=== PATIENT | female | born 1970 | race Hispanic/Latino ===

== ENCOUNTER 2019-09-07 20:18 | Emergency (ER) | payer OTHER ==
--- NOTE | 2019-09-07 21:22 | Emergency Department Report ---
ED General Adult HPI - General Chief complaint: Dizziness Stated complaint: DIZZINESS/CLIFTON Time Seen by Provider: 09/07/19 21:21 Source: patient Mode of arrival: Ambulatory Limitations: No Limitations - History of Present Illness Initial comments: 49-year-old female presents emergency department after having a complaint of headache dizziness and a cough for the past 2 days. 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 Patient denies any nausea or vomiting. Patient states the cough is been productive. Patient denies any other recent travel. - Related Data Previous Rx's Medication Instructions Recorded Last Taken Type Acetaminophen [Tylenol] 325 mg PO Q8HR #20 capsule 09/08/19 Unknown Rx Allergies Allergy/AdvReac Type Severity Reaction Status Date / Time amoxicillin [From Augmentin] AdvReac Itching Verified 09/07/19 22:10 clavulanic acid AdvReac Itching Verified 09/07/19 22:10 [From Augmentin] ED Review of Systems ROS: Stated complaint: DIZZINESS/CLIFTON Other details as noted in HPI Constitutional: denies: chills, fever Eyes: denies: eye pain, eye discharge, vision change ENT: denies: ear pain, throat pain Respiratory: cough Cardiovascular: denies: chest pain, palpitations Endocrine: no symptoms reported Gastrointestinal: denies: abdominal pain, nausea, diarrhea Genitourinary: denies: urgency, dysuria, discharge Musculoskeletal: denies: back pain, joint swelling, arthralgia Skin: denies: rash, lesions Neurological: headache, other (dizziness) Psychiatric: denies: anxiety, depression Hematological/Lymphatic: denies: easy bleeding, easy bruising ED Past Medical Hx - Medications Home Medications: Home Medications Medication Instructions Recorded Confirmed Last Taken Type Acetaminophen [Tylenol] 325 mg PO Q8HR #20 capsule 09/08/19 Unknown Rx ED Physical Exam - General Limitations: No Limitations General appearance: alert, other (Mildly uncomfortable) - Head Head exam: Present: atraumatic, normocephalic - Eye Eye exam: Present: normal appearance - ENT ENT exam: Present: mucous membranes moist - Neck Neck exam: Present: normal inspection - Respiratory Respiratory exam: Present: normal lung sounds bilaterally. Absent: respiratory distress - Cardiovascular Cardiovascular Exam: Present: regular rate, normal rhythm. Absent: systolic murmur, diastolic murmur, rubs, gallop - GI/Abdominal GI/Abdominal exam: Present: soft, normal bowel sounds - Extremities Exam Extremities exam: Present: normal inspection - Back Exam Back exam: Present: normal inspection - Neurological Exam Neurological exam: Present: alert, oriented X3 - Psychiatric Psychiatric exam: Present: normal affect, normal mood - Skin Skin exam: Present: warm, dry, intact, normal color. Absent: rash ED Course Vital Signs 09/07/19 09/07/19 20:21 22:34 Temperature 98.6 F 98.7 F Pulse Rate 70 61 Respiratory 18 16 Rate Blood Pressure 128/70 Blood Pressure 132/77 [Left] O2 Sat by Pulse 98 100 Oximetry ED Medical Decision Making - Lab Data Result diagrams: 09/07/19 21:29 09/07/19 21:29 - Medical Decision Making Patient has negative flu. Patient has normal lab profile and normal chest x-ray as well. Patient told to go on 14-day quarantine and online form for suspected COVID 19 has been filled out for the patient. - Differential Diagnosis Pneumonia; electrolyte abnormality; anemia; viral illness Critical care attestation.: If time is entered above; I have spent that time in minutes in the direct care of this critically ill patient, excluding procedure time. ED Disposition Clinical Impression: Viral illness Disposition: DC-01 TO HOME OR SELFCARE Is pt being admited?: No Does the pt Need Aspirin: No Condition: Stable Instructions: Viral Syndrome (ED) Prescriptions: Acetaminophen [Tylenol] 325 mg PO Q8HR #20 capsule Referrals: PRIMARY CARE, [Primary Care Provider] - 3-5 Days Time of Disposition: 02:39 Print Language: TANZANIAN
[2019-09-07] MEDS ORDERED: SODIUM CHLORIDE 0.9% 1000 ML 1,000 ML IV ONE (21:43)
[2019-09-07 21:44] LABS: Hematocrit 42.3 % (30.3-42.9); Hemoglobin 14.2 gm/dl (10.1-14.3); Mean Corpuscular HGB Conc 34 % (30-34); Mean Corpuscular Volume 92 fl (79-97); Platelet Count 283 K/mm3 (140-440); Red Blood Count 4.59 M/mm3 (3.65-5.03)
[2019-09-07 22:00] LABS: Alanine Aminotransferase 17 units/L (7-56); Albumin 4.6 g/dL (3.9-5); BUN/Creatinine Ratio 32; Blood Urea Nitrogen 19 mg/dL (7-17); Calcium 9.5 mg/dL (8.4-10.2); Hemolysis Index 4
--- NOTE | 2019-09-07 22:20 | XRay Report ---
CHEST 1 VIEW INDICATION / CLINICAL INFORMATION: shortness of breath. COMPARISON: None available. FINDINGS: SUPPORT DEVICES: None. HEART / MEDIASTINUM: No significant abnormality. LUNGS / PLEURA: No significant pulmonary or pleural abnormality. No pneumothorax. ADDITIONAL FINDINGS: No significant additional findings. IMPRESSION: 1. No significant change Signer Name: Bashir Nassar MD Signed: 09/07/2019 10:15 PM Workstation Name: [id number]
[2019-09-07 22:54] VITALS: BP 132/77
[2019-09-08] MEDS ORDERED: ACETAMINOPHEN 500 MG TAB PO ONE (00:14)
--- NOTE | 2019-09-08 02:27 | Cat Scan Report ---
CT HEAD WITHOUT CONTRAST HISTORY: Pt complains of headache and dizziness. COMPARISON: None TECHNIQUE: CT imaging of the head was performed in the axial, sagittal, and coronal projections and bone algori thm in axial projection in the soft tissue algorithm. All CT scans at this location are performed using CT dose reduction for ALARA by means of automated e xposure control. CONTRAST: None. FINDINGS: Cerebral and Cerebellar Hemispheres: Mild diffuse cerebral atrophy. No evidence of mass or mass effec t. No midline shift. No acute hemorrhage. No acute cortical infarction. No extra-axial fluid kaylen ection. Ventricles: Normal in size and configuration for age. Osseous Structures: No significant abnormality. Visualized Paranasal Sinuses: No significant abnormality. Additional Findings: None IMPRESSION: 1. No acute intracranial abnormality. NOTE: Acute infarct may not be visible by noncontrast CT. Signer Name: Aashish Pichardo MD Signed: 09/08/2019 2:23 AM Workstation Name: [id number]
== END 2019-09-08 03:00 | disposition home or self-care (01) ==
LOC: ED 20:18
DX: B34.9 Viral infection, unspecified (principal); Z88.1 Allergy status to other antibiotic agents
CPT/HCPCS: 36415; 70450; 71045; 80053; 85027; 87400; 99284; J7030